=== PATIENT | female | born 1980 | race Caucasian/White ===

== ENCOUNTER 2016-03-18 16:26 | Outpatient (CLI) ==
[2014-02-03 13:31] VITALS: BMI 26.6
[2016-03-18 17:37] LABS: BASOPHILS % (AUTO) 0.7 % (0.0-3.0); EOSINOPHILS # (AUTO) 0.1 K/ul (0.0-0.7); EOSINOPHILS % (AUTO) 2.4 % (0.0-7.0); HEMATOCRIT 35.8 % (37.0-47.0); HEMOGLOBIN 12.2 g/dl (12.0-16.0); IMMATURE GRANULOCYTE % (AUTO) 0.4 % (0.0-5.0); LYMPHOCYTES # (AUTO) 1.5 K/uL (0.60-3.4); LYMPHOCYTES % (AUTO) 27.4 (10.0-50.0); MEAN CORPUSCULAR HEMOGLOBIN 29.6 pg (27.0-31.0); MEAN CORPUSCULAR HGB CONC 34.1 (31.8-35.4); MEAN CORPUSCULAR VOLUME 86.9 fl (81.0-99.0); MONOCYTES # (AUTO) 0.3 K/uL (0.4-2.0); MONOCYTES % (AUTO) 5.1 (0-10); NEUTROPHILS # (AUTO) 3.5 K/ul (2.0-6.9); PLATELET COUNT 231 10^3/uL (140-440); RED BLOOD COUNT 4.12 10^6/ul (4.20-5.40); WHITE BLOOD COUNT 5.51 K/ul (4.6-10.2)
[2016-03-18 17:59] LABS: ALBUMIN 3.4 g/dL (3.4-5.0); ALBUMIN/GLOBULIN RATIO 0.81; BILIRUBIN,TOTAL 0.37 mg/dL (0.00-1.20); BUN/CREATININE RATIO 12.64; CALCIUM 9.2 mg/dL (8.2-10.2); CREATININE 0.87 mg/dL (0.60-1.30); TOTAL PROTEIN 7.6 g/dL (6.4-8.2)
== END 2016-03-18 16:27 | disposition home or self-care (01) ==
LOC: LAB 16:26
PROVIDERS: ATTEND Nurse Practitioner Family
DX: F41.9 Anxiety disorder, unspecified (principal)
CPT/HCPCS: 36415; 80053; 84439; 84443; 85025